=== PATIENT | female | born 1990 | race Caucasian/White ===

== ENCOUNTER 2019-08-06 05:45 | Outpatient (CLI) | payer BC ==
[~2019-08-06] VITALS: Ht 160 cm; Wt 98.6 kg
[2019-08-06] MEDS ORDERED: DULA1.5P2 SQ (14:52)
[2019-08-06] MEDS ORDERED: METF750T2 PO (14:52)
== END 2019-08-06 15:30 | disposition home or self-care (01) ==
LOC: PREOP 05:45
PROVIDERS: ATTEND Surgery
DX: Z01.818 Encounter for other preprocedural examination (principal)

== ENCOUNTER 2019-08-13 06:49 | Day surgery (SDC) | payer BC ==
[~2019-08-13] VITALS: Ht 160 cm; Wt 98.6 kg
[~2019-08-13 06:49] MED LIST: DULA1.5P2 SQ; METF750T2 PO
[2019-08-13] MEDS ORDERED: MIDAZOLAM 2 MG/2 ML (VERSED) VIAL ONE (07:10)
[2019-08-13] MEDS ORDERED: PROPOFOL INJECTION 50 ML IV ONE (07:10)
[2019-08-13] MEDS ORDERED: LACTATED RINGERS 1,000 ML IV ONE (07:11)
[2019-08-13] MEDS ORDERED: LACTATED RINGERS 1,000 ML IV STA (07:29)
[2019-08-13 07:35] VITALS: BP 118/71
[2019-08-13 09:36] VITALS: BP 121/67
[2019-08-13 09:40] VITALS: BP_SYST 118; BP_SYST 121; BP_DIAS 64; BP_DIAS 71
--- NOTE | 2019-08-13 09:42 | Progress Note-Post Operative ---
Post-Operative Progess Note Surgeon (s)/Right Of Way Man (s) Surgeon XIOMARA PAUL DO Right Of Way Man: none Pre-Operative Diagnosis Rectal bleed, RLQ pain, diarrhea Post-Operative Diagnosis Diverticula Int hemorrhoids Procedure & Operative Findings Date of Procedure 08/13/19 Procedure Performed/Findings colon Anesthesia Type IV sedation by [employer] WORKER Estimated Blood Loss Estimated blood loss (mL): none Specimens/Packing Specimens Removed none XIOMARA PAUL DO Aug 13, 2019 09:41
--- NOTE | 2019-08-13 09:42 | Endoscopy Discharge Instruct ---
Endo Procedure/Findings Findings 1.: Diverticulosis 2.: Internal Hemorrhoids Discharge Instructions - Activity: You might feel a little sleepy until tomorrow. This is due to the medicine you received to relax you. Until tomorrow, you should: NOT drive a car, operate machinery or power tools. NOT drink any alcoholic beverages. NOT make any important decisions or sign importortant papers. Do not return to work until tomorrow, unless otherwise instructed. Resume previous activities tomorrow. Diet: Start by taking liquids. If you tolerate liquids, advance to solid food. make an appointment for one week Notify Physician - If you experience excessive bleeding, unusual abdominal pain, fever, or chest pain, contact your doctor immediately. XIOMARA PAUL DO Aug 13, 2019 09:42
--- NOTE | 2019-08-13 10:05 | Anesthesia-General Post-Op ---
MAC Patient Condition Mental Status/LOC: Same as Preop Cardiovascular: Satisfactory Nausea/Vomiting: Absent Respiratory: Satisfactory Pain: Controlled Complications: Absent Post Op Complications Complications None Follow Up Care/Instructions Patient Instructions None needed. Anesthesiology Discharge Order Discharge Order Patient is doing well, no complaints, stable vital signs, no apparent adverse anesthesia problems. No complications reported per nursing. KENAN HOYOS CRNA Aug 13, 2019 10:05
[2019-08-13 10:10] VITALS: BP 132/83
[2019-08-13 10:40] VITALS: BP 132/83
--- NOTE | 2019-08-15 00:15 | OPERATIVE REPORT ---
DATE OF SERVICE: 08/13/2019 PREOPERATIVE DIAGNOSIS: Rectal bleed. POSTOPERATIVE DIAGNOSES: Diverticula on the right side, internal hemorrhoids. PROCEDURE: Colonoscopy. SURGEON: Corey Blackwood DO. MACHINE ETCHER: None. ANESTHESIA: IV sedation by the PIPELAYER. SPECIMENS: None. BLOOD LOSS: None. FLUIDS: Per anesthesia. POSTOPERATIVE CONDITION: Stable. INDICATION FOR PROCEDURE: The patient is a 29-year-old female who had episode of rectal bleed and some right-sided abdominal pain needed a workup. FINDINGS: The patient had diverticula on the right side, but nothing really on the left side and some internal hemorrhoids maybe grade I. PROCEDURE NOTE: After informed consent was obtained, the patient was brought to the endoscopy suite and placed on bed in the left lateral decubitus position. She was administered IV sedation by the PIPELAYER who then monitored her vitals the entire time, heart rate, blood pressure, pulse ox and the scope was inserted all the way to about 140 cm, able to get all the way to cecum, took a picture of appendiceal orifice, noted the ileocecal valve, on the right side saw a large diverticula, took a picture of this. Rest of the colon on the right side looked normal, took a picture, took a picture of appendiceal orifice and then slowly withdrew the scope insufflating to look circumferentially at the mitchell looking at the cecum up the ascending colon to the hepatic flexure, then down the transverse colon to the splenic flexure, into the descending colon down into the sigmoid and finally into the rectum, retroflexed in the rectal vault, saw some very minimal internal hemorrhoids, took a picture of this and then removed the scope. The patient tolerated the procedure well, recovered in endoscopy suite. Job ID: [id number] DocumentID: [id number] Dictated Date: 08/14/2019 17:19:34 Navigation Officer Date: 08/15/2019 00:13:51 Dictated By: COREY BLACKWOOD DO
== END 2019-08-13 10:40 | disposition home or self-care (01) ==
LOC: ENDO 06:49
PROVIDERS: ATTEND Surgery
DX: K57.30 Diverticulosis of large intestine without perforation or abscess without bleeding (principal); K64.8 Other hemorrhoids; E11.9 Type 2 diabetes mellitus without complications; G43.909 Migraine, unspecified, not intractable, without status migrainosus; E66.9 Obesity, unspecified; Z68.38 Body mass index [BMI] 38.0-38.9, adult; Z79.84 Long term (current) use of oral hypoglycemic drugs; Z83.79 Family history of other diseases of the digestive system; Z79.899 Other long term (current) drug therapy
CPT/HCPCS: 84703